=== PATIENT | female | born 1980 | race Caucasian/White ===

== ENCOUNTER 2016-09-27 11:13 | Observation (INO) | payer OTHER ==
[2016-09-27] MEDS ORDERED: HEPARIN 5,000 UNIT/0.5 ML SYR SC ONE (14:30)
--- NOTE | 2016-09-27 15:44 | GHP ---
[f rep st] PREOP HISTORY AND PHYSICAL DATE OF ADMISSION: 09/27/2016 TYPE OF REPORT: LB triage note. DIAGNOSIS: Intrauterine at 38 and 0 weeks' gestation, presented with vaginal spotting and decreased movement. HISTORY OF PRESENT ILLNESS: The patient is a 36-year-old 9, para 2-0-6-2, with a last menstr ual period of 01/05/2016 and EDC of 10/11/2016 confirmed by a 1st trimester ultrasound. She has had good care at [facility] since registration in the 1st trimester, and she has good dates. Her course has been complicated by a history of protein S deficiency habitual aborti on; she has had 6 miscarriages. She also has a history of hypothyroidism, migraines, asthma, and maris gohydramnios with G2. She has a history of an anxiety disorder, as well. The patient has had good p renatal care. Most recent ultrasound demonstrated an estimated weight of 68th percentile, ceph alic, and an KENTRELL of 14 at 36 weeks. The patient has been monitored closely with serial ultrasounds cory delgado, and is due to have an ultrasound for KENTRELL today. She presented with concerns about possible la bor and discussion of desiring an induction of labor at 38 weeks. She has no regular contractions an d has had good movements since she has been here, and cervical exam is 1, 60%, -2. hear t tones were in the 120s and reactive, moderate variability, category 1 tracing. Patient has been ob served, is not in active labor, has had no cervical change. Has minimal spotting secondary to cervic al exam. ASSESSMENT AND PLAN: A 36-year-old, 9, para 1-0-6-2, at 38 weeks' gestation. No evidence of active labor. status is reassuring. We ordered an ultrasound for KENTRELL. If this is reassuring , patient will be discharged home with labor precautions. /[id number]/MODL
--- NOTE | 2016-09-27 16:26 | US ---
Limited OB Sonogram History: 38 weeks, followup oligohydramnios, evaluate estimated weight and KENTRELL, maternal protei n S deficiency Comparison: August 02, 2016 (KENTRELL 15.2, estimated weight 1692 grams (75%) Findings: There is as single viable intrauterine gestation in vertex presentation. The cervix is clos ed measuring 3.1 cm. The umbilical cord inserts normally into the normal appearing placenta. The feta l heart is 4 chambered and has a rate of 132 beats per minute. The right and left ventricular outflow tracks are normal. Maximum amniotic fluid pocket = 7.4 cm. KENTRELL = 15 cm. Fluid is identified in the f etal stomach and urinary bladder. The renal region looks normal. There is no ascite s. The umbilical cord has 3 vessels. The visualized face looks normal. BPD = 94 mm = 30 weeks 4 days Head circumference = 336 mm = 38 weeks 4 days Abdominal circumference = 344 mm = 38 weeks 2 days Femur length = 75 mm = 38 weeks 4 days Humeral length = 66 mm = 30 weeks 3 days Estimated weight = 3476 grams = 72 percentile Gestational age by dates 38 weeks 0 days Gestational age by ultrasound 30 weeks 4 days RUSLAN by dates October 11 RUSLAN by ultrasound October 07 Impression: 1. Normal amniotic fluid volume. 2. Estimated weight = 72 percentile
== END 2016-09-27 16:20 | disposition home or self-care (01) ==
LOC: FLD 11:13
PROVIDERS: ADMIT Obstetrics & Gynecology; ATTEND Obstetrics & Gynecology
DX: O26.23 Pregnancy care for patient with recurrent pregnancy loss, third trimester (principal); O99.113 Other diseases of the blood and blood-forming organs and certain disorders involving the immune mechanism complicating pregnancy, third trimester; O99.283 Endocrine, nutritional and metabolic diseases complicating pregnancy, third trimester; D68.59 Other primary thrombophilia; E03.9 Hypothyroidism, unspecified; F41.9 Anxiety disorder, unspecified; Z3A.38 38 weeks gestation of pregnancy
CPT/HCPCS: 59025; 76815; G0378

== ENCOUNTER 2016-10-04 05:07 | Inpatient (IN) | payer OTHER ==
[2016-10-04] MEDS ORDERED: EPSOM SALT 454 GM TP PRN (05:26)
[2016-10-04] MEDS ORDERED: MINERAL OIL 60 ML OIL TP PRN (05:26)
[2016-10-04] MEDS ORDERED: TERBUTALINE SULFATE 1 MG/ML VIAL IV PRN (05:26)
[2016-10-04] MEDS ORDERED: LIDOCAINE 1% 30 ML SDV SC PRN (05:26)
[2016-10-04] MEDS ORDERED: LR 1,000 ML IV PRN (05:26)
[2016-10-04] MEDS ORDERED: OXYTOCIN/RINGERS LACTATE 1,000 ML IV PRN (05:26)
[2016-10-04] MEDS ORDERED: AMPICILLIN SODIUM 2 GM in NS 100 ML IV ONE (05:26)
[2016-10-04] MEDS ORDERED: LIDOCAINE 1% 30 ML SDV ONE (05:50)
[2016-10-04] MEDS ORDERED: OXYTOCIN 10 UNIT/ML VIAL ONE (05:51)
[2016-10-04] MEDS ORDERED: TERBUTALINE SULFATE 1 MG/ML VIAL ONE (05:51)
[2016-10-04] MEDS ORDERED: AMMONIA AROMATIC 1 EACH AMP IH ONE (05:51)
[2016-10-04] MEDS ORDERED: MISOPROSTOL 200 MCG TAB ONE (05:52)
[2016-10-04] MEDS ORDERED: OXYTOCIN/LR *STANDARD DOSE PROTOCOL IV SCH (06:00)
[2016-10-04 06:11] LABS: % IMMATURE GRANULYOCYTES 0.5 % (0.0-1.1); ABSOLUTE IMMATURE GRANULOCYTES 0.03 10^3/uL (0.00-0.10); ADD DIFF? NO; ADD MORPH? NO; ADD SCAN? NO; ATYPICAL LYMPHOCYTE FLAG 10 (0-99); FRAGMENT RBC FLAG 0 (0-99); HEMATOCRIT 38.5 % (38.0-47.0); HEMOGLOBIN 13.7 g/dL (12.6-16.3); LEFT SHIFT FLG 0 (0-99); LIPEMIA HEMOLYSIS FLAG 90 (0-99); MEAN CELL HEMOGLOBIN 30.7 pg (27.9-34.1); MEAN CELL HEMOGLOBIN CONCENTR. 35.6 g/dL (32.4-36.7); MEAN CELL VOLUME 86.3 fL (81.5-99.8); MEAN PLATELET VOLUME 11.2 fL (8.7-11.7); PLATELET CLUMPS FLAG 0 (0-99); PLATELET COUNT 201 10^3/uL (150-400); RED BLOOD CELL COUNT 4.46 10^6/uL (4.18-5.33); RED CELL DISTRIBUTION WIDTH 12.1 % (11.5-15.2)
[2016-10-04] MEDS ORDERED: AMPICILLIN SODIUM 1 GM in NS 100 ML IV SCH (09:26)
--- NOTE | 2016-10-04 09:34 | GHP ---
[f rep st] PREOP HISTORY AND PHYSICAL DATE OF ADMISSION: 10/04/2016 ADMISSION DIAGNOSES: 1. Intrauterine at 39 weeks gestation. 2. Protein S deficiency. Has been anticoagulated in . 3. History of recurrent miscarriages. The patient is a 36-year-old, 9 para 2-0-6-2, who is 39 weeks gestation. The patient has been anticoagulated with Lovenox and heparin during this for being a habitual aborter and having a protein S deficiency. The patient presents today for induction of labor. She is 3 cm dilated, 70% effaced, and -2 station. She started on antibiotics for group beta strep prophylaxis and Pitocin for induction of labor, and her membranes were just ruptured. MEDICAL HISTORY: Hypothyroidism, anxiety, protein S deficiency, recurrent loss, migraines, asthma, history of osteopenia. MEDICATIONS: vitamins, levothyroxine, DHA, baby aspirin. Patient discontinued heparin yesterday. SURGICAL HISTORY: In 2007, she had arterial surgery. She was diagnosed with right iliac fibrosis. Had a vein patch and angioplasty, appendectomy, D and C secondary to missed . ALLERGIES: No known drug allergies. SOCIAL HISTORY: Patient is . She is a [id number] mom. She lives with her and her 2 children. FAMILY MEDICAL HISTORY: Noncontributory. [employer] MACHINE OPERATOR HISTORY: Menarche at age 14. Periods every 28 days, lasting 5 days. She is a 9 para 2-0-6-2. She has had 5 spontaneous abortions and 1 missed requiring a D and C that pathology showed trisomy 14. In 2009, she had a spontaneous vaginal delivery at 39 and 6/7 weeks gestation of a 7 pounds, 13 ounce female infant. She was GBS positive. She had anal fissures , but otherwise uncomplicated course. In 09/2013, she had a spontaneous vaginal delivery at 38 and 3/7 weeks gestation of an 8 pounds, 8 ounce male infant. She had developed oligohydramnios and was induced at 38 weeks. She was anticoagulated with Lovenox and heparin throughout that . Current has been uncomplicated. She has been anticoagulated and discontinued anticoagulation yesterday. The patient denies any history of any abnormal Pap smears or sexually transmitted diseases. PHYSICAL EXAM: VITAL SIGNS: Stable. GENERAL APPEARANCE: Alert and oriented x3. HEART: Rate is regular. LUNGS: Clear to auscultation bilaterally. ABDOMEN: Gravid, nondistended, nontender. EXTREMITIES: Reveal no calf tenderness or edema. CERVICAL EXAM: She was 3 cm dilated, 70% effaced, and -2 station. is in the vertex presentation. heart tracings are category 1. She is now having contractions every 2-3 minutes, and her membranes have been artificially ruptured. LABS: Blood type O positive. Antibody screen negative. Rubella immune. GBS positive. HBsAg negative. HIV negative. Her 50 g glucose was 134. She had a normal 3-hour glucose tolerance test. ASSESSMENT AND PLAN: A 36-year-old, 9 para 2-0-6-2, who is 39 weeks gestation, here for induction of labor. The patient has been started on Pitocin , antibiotics, and her membranes have been artificially ruptured. She is likely going to get an epidural unless she goes quickly. /[id number]/MODL MTDD
[2016-10-04] MEDS ORDERED: POLYETHYLENE GLYCOL 3350 17 GM PKT PO PRN (10:34)
[2016-10-04] MEDS ORDERED: HYDROCORTISONE 0.5% CREAM TP PRN (10:34)
[2016-10-04] MEDS ORDERED: MAGNESIUM HYDROXIDE 30 ML UDCUP PO PRN (10:34)
[2016-10-04] MEDS ORDERED: SIMETHICONE 80 MG TAB CHEW PO PRN (10:34)
[2016-10-04] MEDS ORDERED: BISACODYL 10 MG SUPP PR PRN (10:34)
[2016-10-04] MEDS ORDERED: HYDROCODONE/APAP 5/325 TAB PO PRN (10:34)
[2016-10-04] MEDS ORDERED: LACTULOSE 20 GM/30 ML UDCUP PO PRN (10:34)
--- NOTE | 2016-10-04 10:36 | OBPROC ---
- Labor and Delivery Onset of Contractions Date: 10/04/16 Onset of Contractions Time: 08:00 Onset of Contractions Type: Induced Rupture of Membranes Date: 10/04/16 Rupture of Membranes Time: 08:45 Rupture of Membranes Type: Artificial Amniotic Fluid Color: Clear Delivery Type: Spontaneous Placenta Delivery Date: 10/04/16 Episiotomy/Laceration: 2nd Degree Repair: 3-0 EBL: 200 Complications: Other (Specify) (nuchal arm) - Medications Labor Augmentation/Induction Meds Used: Pitocin Labor Augmentation/Induction Indication: Elective (thrombophilia), Other ( Specify) (eleci) - [place] Info Infant A Delivery Date: 10/04/16 Delivery Time: 10:10 Sex of Infant: Female Score (1 Min): 8 Score (5 Min): 8
[2016-10-04] MEDS ORDERED: ALBUTEROL 60 PUFFS/8 GM MDI IH PRN (11:00)
[2016-10-04] MEDS: ACETAMINOPHEN 325 MG TAB PO PRN ×4 (12:06→23:23)
[2016-10-04 13:03] VITALS: RESP 16
[2016-10-04] MEDS: SENNOSIDES/DOCUSATE SODIUM TAB PO SCH (20:21)
[2016-10-04] MEDS ORDERED: OXYCODONE/APAP 5/325 TAB PO PRN (23:57)
[2016-10-05] MEDS: ACETAMINOPHEN 325 MG TAB PO PRN ×4 (03:36→19:40)
[2016-10-05] MEDS ORDERED: ENOXAPARIN 40 MG/0.4 ML SYR SC ONE (06:00)
[2016-10-05] MEDS ORDERED: LEVOTHYROXINE 50 MCG TAB PO SCH (06:00)
[2016-10-05] MEDS: LEVOTHYROXINE 25 MCG TAB PO SCH (06:02)
--- NOTE | 2016-10-05 07:38 | OBPROG ---
OBG Progress Note Assessment/Plan: Assessment: 1) s/p PPD # 1 - pt is stable 2) Protein S deficiency - on Lovenox pp Plan: Continue routine pp care Encourage ambulation Plan for d/c home in am 10/0610/05/16 07:35 Subjective: Pt seen and examined. Having some cramping, but overall doing well. Moderate lochia. without difficulty. Objective: 10/04/16 05:45 Patient ABO/Rh O POSITIVE 10/04/16 05:45 Temp Pulse Resp BP Pulse Ox 36.6 C 69 16 113/75 96 10/04/16 20:00 10/04/16 20:00 10/04/16 20:00 10/04/16 20:00 10/04/16 20:00 Uterine Position/Fundal Height: Umbilicus -2 Uterine Tone: Firm - Physical Exam General Appearance: WD/WN, alert, no apparent distress Respiratory: lungs clear, normal breath sounds Cardiac/Chest: regular rate, rhythm Abdomen: normal bowel sounds, non-tender, soft, flatus (+) Genitourinary: lochia (moderate) Extremities: normal inspection Neuro/Psych: alert, normal mood/affect, oriented x 3 ICD10 Worksheet Patient Problems: Problems Problem Status Diagnosed Protein S deficiency Acute (spontaneous vaginal delivery) Acute Decreased movements, second trimester, not applicable or unspecified Acute - ICD10 Problem Qualifiers (1) (spontaneous vaginal delivery) (2) Protein S deficiency
[2016-10-05] MEDS: SENNOSIDES/DOCUSATE SODIUM TAB PO SCH ×2 (07:42→19:41)
[2016-10-05 20:49] VITALS: O2SAT 92
[2016-10-06] MEDS: ACETAMINOPHEN 325 MG TAB PO PRN ×2 (01:04→07:22)
[2016-10-06] MEDS: SENNOSIDES/DOCUSATE SODIUM TAB PO SCH (07:22)
[2016-10-06] MEDS: LEVOTHYROXINE 25 MCG TAB PO SCH (07:22)
--- NOTE | 2016-10-06 08:12 | OBPROG ---
OBG Progress Note Assessment/Plan: Assessment: 1) s/p PPD # 2 - pt is stable 2) Protein S deficiency - on Lovenox pp Plan: Plan for d/c home today Instructions reviewed with pt No Rx given Cont PNV and Lovenox Pelvic rest RTC in 6 weeks for pp visit 10/06/16 08:09 Subjective: Pt seen and examined. Doing well, no complaints. well. Moderate lochia. Objective: 10/04/16 05:45 Patient ABO/Rh O POSITIVE 10/04/16 05:45 Temp Pulse Resp BP Pulse Ox 36.6 C 68 16 103/65 92 10/05/16 19:30 10/05/16 19:30 10/05/16 19:30 10/05/16 19:30 10/05/16 19:30 Uterine Position/Fundal Height: Umbilicus -2 Uterine Tone: Firm - Physical Exam General Appearance: WD/WN, alert, no apparent distress Respiratory: lungs clear, normal breath sounds Cardiac/Chest: regular rate, rhythm Abdomen: normal bowel sounds, non-tender, soft, flatus (+) Genitourinary: lochia (moderate) Extremities: normal inspection Neuro/Psych: alert, normal mood/affect, oriented x 3 ICD10 Worksheet Patient Problems: Problems Problem Status Diagnosed Protein S deficiency Acute (spontaneous vaginal delivery) Acute Decreased movements, second trimester, not applicable or unspecified Acute - ICD10 Problem Qualifiers (1) (spontaneous vaginal delivery) (2) Protein S deficiency
[2016-10-06] MEDS ORDERED: ENOXAPARIN 40 MG/0.4 ML SYR SC SCH (09:00)
[2016-10-06 11:14] VITALS: BP 108/68; PULSE 72; TEMP 97.4
== END 2016-10-06 11:05 | disposition home or self-care (01) | DRG 775 ==
LOC: FLD 05:07 → FOB 13:20
PROVIDERS: ADMIT Obstetrics & Gynecology; ATTEND Obstetrics & Gynecology
PROC: 10E0XZZ Delivery of Products of Conception, External Approach (ICD-10-PCS; principal; 2016-10-04)
PROC: 0KQM0ZZ Repair Perineum Muscle, Open Approach (ICD-10-PCS; principal; 2016-10-04)
PROC: 10907ZC Drainage of Amniotic Fluid, Therapeutic from Products of Conception, Via Natural or Artificial Opening (ICD-10-PCS; principal; 2016-10-04)
PROC: 3E033VJ Introduction of Other Hormone into Peripheral Vein, Percutaneous Approach (ICD-10-PCS; principal; 2016-10-04)
DX: O70.1 Second degree perineal laceration during delivery (principal); O99.824 Streptococcus B carrier state complicating childbirth; O99.12 Other diseases of the blood and blood-forming organs and certain disorders involving the immune mechanism complicating childbirth; D68.59 Other primary thrombophilia; O26.23 Pregnancy care for patient with recurrent pregnancy loss, third trimester; O99.284 Endocrine, nutritional and metabolic diseases complicating childbirth; E03.9 Hypothyroidism, unspecified; O69.82X0 Labor and delivery complicated by other cord entanglement, without compression, not applicable or unspecified; Z3A.39 39 weeks gestation of pregnancy; Z37.0 Single live birth
CPT/HCPCS: J0290; J1650; J2590; J3105

== ENCOUNTER → 2018-09-11 | Outpatient (CLI) | payer OTHER | END | disposition home or self-care (01) | LOC: FIMAGING 09:37 | PROVIDERS: ATTEND Obstetrics & Gynecology | DX: O26.21 Pregnancy care for patient with recurrent pregnancy loss, first trimester (principal); O99.111 Other diseases of the blood and blood-forming organs and certain disorders involving the immune mechanism complicating pregnancy, first trimester; D68.59 Other primary thrombophilia; O09.521 Supervision of elderly multigravida, first trimester; Z3A.11 11 weeks gestation of pregnancy ==

== ENCOUNTER → 2018-10-14 | Outpatient (CLI) | payer OTHER | LOC: FIMAGING 07:25 | PROVIDERS: ATTEND Obstetrics & Gynecology | DX: O09.522 Supervision of elderly multigravida, second trimester (principal); O09.292 Supervision of pregnancy with other poor reproductive or obstetric history, second trimester; Z3A.16 16 weeks gestation of pregnancy ==

== ENCOUNTER → 2018-11-13 | Outpatient (CLI) | payer OTHER | LOC: FIMAGING 09:41 | PROVIDERS: ATTEND Obstetrics & Gynecology | DX: O09.522 Supervision of elderly multigravida, second trimester (principal); D68.59 Other primary thrombophilia; Z3A.20 20 weeks gestation of pregnancy ==

== ENCOUNTER → 2018-12-22 | Outpatient (CLI) | payer OTHER | LOC: FIMAGING 09:09 | PROVIDERS: ATTEND Obstetrics & Gynecology | DX: O09.523 Supervision of elderly multigravida, third trimester (principal); O09.293 Supervision of pregnancy with other poor reproductive or obstetric history, third trimester; Z3A.36 36 weeks gestation of pregnancy ==

== ENCOUNTER → 2019-02-02 | Outpatient (CLI) | payer OTHER | LOC: FIMAGING 09:17 | PROVIDERS: ATTEND Obstetrics & Gynecology | DX: O26.23 Pregnancy care for patient with recurrent pregnancy loss, third trimester (principal); O09.523 Supervision of elderly multigravida, third trimester; O26.893 Other specified pregnancy related conditions, third trimester; Z3A.32 32 weeks gestation of pregnancy ==

== ENCOUNTER 2019-03-16 02:34 | Inpatient (IN) | payer OTHER | END 2019-03-18 12:30 | disposition home or self-care (01) | LOC: FLD 02:34 → FOB 10:34 ==